=== PATIENT | male | born 1940 | race Caucasian/White ===

== ENCOUNTER 2021-10-14 08:43 | Emergency (ER) | payer OTHER ==
[~2021-10-14] VITALS: Ht 182.9 cm; Wt 77.1 kg
[2021-10-14 08:52] VITALS: BP 173/100
--- NOTE | 2021-10-14 08:52 | NUR ---
[id number] HOME C/O L HIP/LLE PAIN S/P SLIP AND FALL 45 MINS HOT ROLL LAMINATOR. NO OBVIOUS HEAD INJURY NOTED.
[2021-10-14] MEDS ORDERED: KETOROLAC TROMETHAMINE INJ 30 MG/ML VIAL IM ONE (09:00)
[2021-10-14] MEDS ORDERED: ACETAMINOPHEN 325 MG TABLET PO ONE (09:00)
--- NOTE | 2021-10-14 09:00 | NUR ---
SUPPORT REPRESENTATIVE AT BEDSIDE
--- NOTE | 2021-10-14 09:00 | NUR ---
SUDARSHAN [phone] AT BEDSIDE
[2021-10-14] MEDS ORDERED: KETOROLAC TROMETHAMINE 15 MG/ML VIAL ONE (09:07)
[2021-10-14] MEDS ORDERED: ACETAMINOPHEN 325 MG TABLET ONE (09:07)
--- NOTE | 2021-10-14 09:52 | NUR ---
CAREGIVER STEPPED OUT TO GET CLOTHES AND SHOES AND WILL COME BACK TO TAKE PT HOME
--- NOTE | 2021-10-14 10:24 | NUR ---
Patient marketing content specialist arrived and patient discharged to home in stable condition. Written and verbal after care instructions given to both patient and caregiver. Patient verbalizes understanding of instruction.
== END 2021-10-14 11:06 | disposition home or self-care (01) ==
LOC: ER 08:45
DX: M25.552 Pain in left hip (principal); I10 Essential (primary) hypertension; E78.5 Hyperlipidemia, unspecified; G20 Parkinson's disease; F02.80 Dementia in other diseases classified elsewhere, unspecified severity, without behavioral disturbance, psychotic disturbance, mood disturbance, and anxiety; G89.29 Other chronic pain; W01.0XXA Fall on same level from slipping, tripping and stumbling without subsequent striking against object, initial encounter; Y93.89 Activity, other specified; Y92.89 Other specified places as the place of occurrence of the external cause; Y99.8 Other external cause status
CPT/HCPCS: 73503; 96372; 99283; J1885; 73502